=== PATIENT | male | born 1970 | race Caucasian/White ===

== ENCOUNTER 2021-08-06 13:25 | Emergency (ER) | payer OTHER ==
[2021-08-06] MEDS ORDERED: SODIUM CHLORIDE 0.9% 500 ML 500 ML IV STA (13:31)
[2021-08-06] MEDS ORDERED: HYDROmorphone 0.5 MG/0.5 ML SYRINGE IVP STA (13:31)
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
[2021-08-06 14:14] LABS: Glucose,Whole Blood 91 mg/dL (75-99)
[2021-08-06 14:15] LABS: ALT 16 U/L (4-49); AST 20 U/L (17-59); African American GFR (CKD) >90 (>60 ml/min/1.73 sqM); Alcohol <10 mg/dL; Alkaline Phosphatase 83 U/L (38-126); Anion Gap 8 mmol/L; Blood Urea Nitrogen 17 mg/dL (9-20); Calcium 9.7 mg/dL (8.4-10.2); Carbon Dioxide 23 mmol/L (22-30); Chloride 106 mmol/L (98-107); Glucose 112 mg/dL (74-99); Non-African American GFR(CKD) 90 (>60 ml/min/1.73 sqM); Potassium 3.9 mmol/L (3.5-5.1); Sodium 137 mmol/L (137-145); Total Bilirubin 0.8 mg/dL (0.2-1.3); Total Protein 6.7 g/dL (6.3-8.2)
--- NOTE | 2021-08-06 14:15 | XR ---
EXAMINATION TYPE: XR chest 1V portable DATE OF EXAM: 08/06/2021 COMPARISON: NONE HISTORY: Pain TECHNIQUE: Single frontal view of the chest is obtained. FINDINGS: There is no focal air space opacity, pleural effusion, or pneumothorax seen. The cardiac silhouette size is within normal limits. The osseous structures are intact. Postsurgical change ove rlying the cervical spine. Biapical pleural thickening. IMPRESSION: No acute process.
[2021-08-06 14:19] LABS: Partial Thromboplastin Time 23.2 sec (22.0-30.0); Prothrombin Time 10.9 sec (9.0-12.0)
--- NOTE | 2021-08-06 14:21 | XR ---
EXAMINATION TYPE: XR pelvis AP view DATE OF EXAM: 08/06/2021 COMPARISON: NONE HISTORY: Pain The osseous structures are intact and the joint spaces are preserved. No acute fracture is seen. Vi sualized bowel gas pattern is nonspecific. Hypertrophic change of the acetabulum bilaterally. Vascul ar phleboliths pelvis noted. IMPRESSION: 1. No acute fracture.
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
[2021-08-06] MEDS ORDERED: KETOROLAC 15 MG/ML 1 ML VIAL IVP STA (14:31)
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
[2021-08-06 14:55] LABS: Basophils % (A) 0 %; Eosinophils # (A) 0.1 k/uL (0-0.7); Eosinophils % (A) 2 %; HGB 14.3 gm/dL (13.0-17.5); Lymphocytes # (A) 1.2 k/uL (1.0-4.8); Lymphocytes % (A) 17 %; MCH 29.8 pg (25.0-35.0); MCHC 34.1 g/dL (31.0-37.0); MCV 87.3 fL (80.0-100.0); Mean Platelet Volume 7.7; Monocytes # (A) 0.4 k/uL (0-1.0); Monocytes % (A) 5 %; Neutrophils # (A) 5.2 k/uL (1.3-7.7); Neutrophils % (A) 75 %; Platelet Count 231 k/uL (150-450); RBC 4.81 m/uL (4.30-5.90); RDW 12.8 % (11.5-15.5)
== END 2021-08-06 16:25 | disposition home or self-care (01) ==
LOC: EC 13:25
DX: S50.01XA Contusion of right elbow, initial encounter (principal); M54.9 Dorsalgia, unspecified; E11.9 Type 2 diabetes mellitus without complications; Z79.4 Long term (current) use of insulin; Z79.84 Long term (current) use of oral hypoglycemic drugs; Z90.49 Acquired absence of other specified parts of digestive tract; V40.5XXA Car driver injured in collision with pedestrian or animal in traffic accident, initial encounter; Y92.410 Unspecified street and highway as the place of occurrence of the external cause
CPT/HCPCS: 99285; 96374; 96375; 36415; 93005; 86900; 86901; 80053; 84484; 85025; 85610; 85730; 86850; 80320; 72170; 73080; 71045; 72125; 70450; 71260; 74177; J1885; J1170; Q9967

== ENCOUNTER 2021-09-24 13:59 | Inpatient (IN) | payer OTHER ==
[2021-09-24] MEDS ORDERED: ACETAMINOPHEN TAB 500 MG TAB PO STA (14:45)
[2021-09-24] MEDS ORDERED: HYDROmorphone 0.5 MG/0.5 ML SYRINGE IVP STA (14:45)
[2021-09-24 15:16] LABS: Appearance,Urine Clear (Clear); Bilirubin,Urine Negative (Negative); Blood,Urine Trace (Negative); Color,Urine Light Yellow; Glucose,Urine (UA) 4+ (Negative); Leukocyte Esterase,Urine Negative (Negative); Mucus,Urine Rare /hpf; Nitrite,Urine Negative (Negative); Protein,Urine 1+ (Negative); RBC,Urine <1 /hpf (0-5); Specific Gravity,Urine 1.022 (1.001-1.035); Urobilinogen,Urine <2.0 mg/dL (<2.0); WBC,Urine 3 /hpf (0-5)
[2021-09-24] MEDS ORDERED: SODIUM CHLORIDE 0.9% 500 ML 500 ML IV ONE (15:19)
[2021-09-24] MEDS ORDERED: SODIUM CHLORIDE 0.9% 1,000 ML IV ONE ×2 (15:19→15:45)
[2021-09-24] MEDS ORDERED: SODIUM CHLORIDE 0.9% 1,000 ML IV STA (15:20)
[2021-09-24 15:23] LABS: Basophils % (A) 0 %; Eosinophils % (A) 0 %; HCT 46.3 % (39.0-53.0); HGB 14.9 gm/dL (13.0-17.5); Hypochromasia Slight; Lymphocytes # (A) 0.3 k/uL (1.0-4.8); Lymphocytes % (A) 3 %; MCH 31.2 pg (25.0-35.0); MCHC 32.1 g/dL (31.0-37.0); Monocytes # (A) 0.3 k/uL (0-1.0); Monocytes % (A) 4 %; Neutrophils # (A) 7.1 k/uL (1.3-7.7); Neutrophils % (A) 91 %; Platelet Count 138 k/uL (150-450); RBC 4.76 m/uL (4.30-5.90); RDW 13.6 % (11.5-15.5); WBC 7.9 k/uL (3.8-10.6)
[2021-09-24 15:25] LABS: Ketones,Urine 4+ (Negative)
--- NOTE | 2021-09-24 15:26 | ED ---
General Adult HPI - General Chief complaint: Back Pain/Injury Stated complaint: Back pain, revisit Time Seen by Provider: 09/24/21 14:05 Source: patient, EMS, RN notes reviewed, old records reviewed Mode of arrival: EMS Limitations: no limitations - History of Present Illness Initial comments: This a 51-year-old male who presents emergency Department complaining of bilateral back pain he states it radiates down to his flanks and into the anterior thighs just states it's an achiness. Patient states she was here 2 days ago and had a CAT scan did not show any acute problem. Patient states she was also diagnosed with COVID at that time. It is a diabetic and states his sugar was high and he came in last time. Patient denies any chest pain palpita tions difficulty breathing shortness of breath. Patient denies abdominal pain patient denies any vomiting but complains of significant nausea. Patient denies any headache patient denies any numbness weakness. - Related Data Home Medications Medication Instructions Recorded Confirmed Ergocalciferol (Vitamin D2) 1,250 mcg PO MO 08/06/21 09/24/21 [Drisdol (50,000 Iu)] Fexofenadine HCl [Mckayla Allergy] 180 mg PO DAILY 08/06/21 09/24/21 Insulin Glargine,Hum.rec.anlog 40 units SQ DAILY 08/06/21 09/24/21 [Mary Ann Salgado] Insulin Lispro [humaLOG Kwikpen] See Protocol SQ AC-TID PRN 08/06/21 09/24/21 Levothyroxine Sodium [Synthroid] 50 mcg PO DAILY 08/06/21 09/24/21 Memantine [Namenda] 5 mg PO HS 09/22/21 09/24/21 traMADol HCl [Ultram] 50 mg PO BID PRN 09/22/21 09/24/21 Cyanocobalamin [Vitamin B-12] 500 mcg PO MO 09/24/21 09/24/21 Ibuprofen [Motrin] 800 mg PO Q8H PRN 09/24/21 09/24/21 Previous Rx's Medication Instructions Recorded Ondansetron [Zofran ODT] 4 mg PO Q8HR PRN #20 tab 09/23/21 Allergies Allergy/AdvReac Type Severity Reaction Status Date / Time No Known Allergies Allergy Verified 09/24/21 16:49 Review of Systems ROS Statement: Those systems with pertinent positive or pertinent negative responses have been documented in the HPI. ROS Other: All systems not noted in ROS Statement are negative. Past Medical History Past Medical History: Diabetes Mellitus History of Any Multi-Drug Resistant Organisms: None Reported Past Surgical History: Appendectomy, Back Surgery, Orthopedic Surgery Additional Past Surgical History / Comment(s): shoulder Past Psychological History: No Psychological Hx Reported Smoking Status: Never smoker Past Alcohol Use History: Occasional Past Drug Use History: None Reported General Exam - General Exam Comments Initial Comments: GENERAL: Patient is well-developed and well-nourished. Patient is nontoxic and well- hydrated and is in mild distress. ENT: Neck is soft and supple. No significant lymphadenopathy is noted. Oropharynx is clear. Moist mucous membranes. Neck has full range of motion without eliciting any pain. EYES: The sclera were anicteric and conjunctiva were pink and moist. Extraocular movements were intact and pupils were equal round and reactive to light. Eyelids were unremarkable. PULMONARY: Unlabored respirations. Good breath sounds bilaterally. No audible rales rhonchi or wheezing was noted. CARDIOVASCULAR: There is a regular rate and rhythm without any murmurs gallops or rubs. ABDOMEN: Soft and nontender with normal bowel sounds. SKIN: Skin is clear with no lesions or rashes and otherwise unremarkable. NEUROLOGIC: Patient is alert and oriented x3. Cranial nerves II through XII are grossly intact. Motor and sensory are also intact. Normal speech, volume and content. Symmetrical smile. Patient's straight leg test is normal bilateral MUSCULOSKELETAL: Normal extremities with adequate strength and full range of motion. LYMPHATICS: No significant lymphadenopathy is noted PSYCHIATRIC: Normal psychiatric evaluation. Limitations: no limitations Course Vital Signs 09/24/21 09/24/21 09/24/21 14:03 16:04 17:00 Temperature 98.1 F Pulse Rate 122 H 118 H 122 H Respiratory 18 20 20 Rate Blood Pressure 161/75 155/68 131/78 O2 Sat by Pulse 97 98 97 Oximetry Medical Decision Making - Medical Decision Making EKG sinus tachycardia 119 bpm PA interval is 132 QRS is 92 QT interval 328 QTC is 461 per patient's EKG shows no ST segment elevation or depression. Patient had diabetic ketoacidosis so I started the patient on some insulin and they've the patient to half liters of fluid. I spoke with Dr. Grover he agreed to admit the patient admitted the patient wrote admitting orders. Insulin will be continued on the floor. - Lab Data Result diagrams: 09/24/21 15:03 09/24/21 15:03 Lab Results 09/24/21 09/24/21 09/24/21 Range/Units 15:03 15:03 15:03 WBC 7.9 (3.8-10.6) k/uL RBC 4.76 (4.30-5.90) m/uL Hgb 14.9 (13.0-17.5) gm/dL Hct 46.3 (39.0-53.0) % MCV 97.2 D (80.0-100.0) fL MCH 31.2 (25.0-35.0) pg MCHC 32.1 (31.0-37.0) g/dL RDW 13.6 (11.5-15.5) % Plt Count 138 L (150-450) k/uL MPV 8.0 Neutrophils % 91 % Lymphocytes % 3 % Monocytes % 4 % Eosinophils % 0 % Basophils % 0 % Neutrophils # 7.1 (1.3-7.7) k/uL Lymphocytes # 0.3 L (1.0-4.8) k/uL Monocytes # 0.3 (0-1.0) k/uL Eosinophils # 0.0 (0-0.7) k/uL Basophils # 0.0 (0-0.2) k/uL Hypochromasia Slight Sample Site ABG pH (7.35-7.45) ABG pCO2 (35-45) mmHg ABG pO2 (83-108) mmHg ABG HCO3 (21-25) mmol/L ABG Total CO2 (19-24) mmol/L ABG O2 Saturation (94-97) % ABG Base Excess mmol/L Cricket Test FiO2 % Sodium 132 L (137-145) mmol/L Potassium 6.9 H* (3.5-5.1) mmol/L Chloride 100 (98-107) mmol/L Carbon Dioxide <5 L* (22-30) mmol/L Anion Gap mmol/L BUN 26 H (9-20) mg/dL Creatinine 1.62 H (0.66-1.25) mg/dL Est GFR (CKD-EPI)AfAm 56 (>60 ml/min/1.73 sqM) Est GFR (CKD-EPI)NonAf 48 (>60 ml/min/1.73 sqM) Glucose 621 H* (74-99) mg/dL POC Glucose (mg/dL) (75-99) mg/dL POC Glu Brazer Resistance ID Calcium 9.4 (8.4-10.2) mg/dL Total Bilirubin 0.8 (0.2-1.3) mg/dL AST 23 (17-59) U/L ALT 17 (4-49) U/L Alkaline Phosphatase 118 (38-126) U/L Total Protein 7.2 (6.3-8.2) g/dL Albumin 4.5 (3.5-5.0) g/dL Urine Color Light Yellow Urine Appearance Clear (Clear) Urine pH 5.0 (5.0-8.0) Ur Specific Benedict 1.022 (1.001-1.035) Urine Protein 1+ H (Negative) Urine Glucose (UA) 4+ H (Negative) Urine Ketones 4+ H (Negative) Urine Blood Trace H (Negative) Urine Nitrite Negative (Negative) Urine Bilirubin Negative (Negative) Urine Urobilinogen <2.0 (<2.0) mg/dL Ur Leukocyte Esterase Negative (Negative) Urine RBC <1 (0-5) /hpf Urine WBC 3 (0-5) /hpf Urine Mucus Rare H (None) /hpf Acetone, Qual (Negative) 09/24/21 09/24/21 09/24/21 Range/Units 15:03 16:35 17:00 WBC (3.8-10.6) k/uL RBC (4.30-5.90) m/uL Hgb (13.0-17.5) gm/dL Hct (39.0-53.0) % MCV (80.0-100.0) fL MCH (25.0-35.0) pg MCHC (31.0-37.0) g/dL RDW (11.5-15.5) % Plt Count (150-450) k/uL MPV Neutrophils % % Lymphocytes % % Monocytes % % Eosinophils % % Basophils % % Neutrophils # (1.3-7.7) k/uL Lymphocytes # (1.0-4.8) k/uL Monocytes # (0-1.0) k/uL Eosinophils # (0-0.7) k/uL Basophils # (0-0.2) k/uL Hypochromasia Sample Site Right Brachial Right Brachial ABG pH 7.05 L* 7.06 L* (7.35-7.45) ABG pCO2 25 L 17 L* (35-45) mmHg ABG pO2 49 L* 79 L (83-108) mmHg ABG HCO3 7 L* 5 L* (21-25) mmol/L ABG Total CO2 8 L 5 L (19-24) mmol/L ABG O2 Saturation 77.1 L 93.1 L (94-97) % ABG Base Excess -23.6 -25.5 mmol/L Cricket Test Yes Yes FiO2 21 21 % Sodium (137-145) mmol/L Potassium (3.5-5.1) mmol/L Chloride (98-107) mmol/L Carbon Dioxide (22-30) mmol/L Anion Gap mmol/L BUN (9-20) mg/dL Creatinine (0.66-1.25) mg/dL Est GFR (CKD-EPI)AfAm (>60 ml/min/1.73 sqM) Est GFR (CKD-EPI)NonAf (>60 ml/min/1.73 sqM) Glucose (74-99) mg/dL POC Glucose (mg/dL) (75-99) mg/dL POC Glu Brazer Resistance ID Calcium (8.4-10.2) mg/dL Total Bilirubin (0.2-1.3) mg/dL AST (17-59) U/L ALT (4-49) U/L Alkaline Phosphatase (38-126) U/L Total Protein (6.3-8.2) g/dL Albumin (3.5-5.0) g/dL Urine Color Urine Appearance (Clear) Urine pH (5.0-8.0) Ur Specific Benedict (1.001-1.035) Urine Protein (Negative) Urine Glucose (UA) (Negative) Urine Ketones (Negative) Urine Blood (Negative) Urine Nitrite (Negative) Urine Bilirubin (Negative) Urine Urobilinogen (<2.0) mg/dL Ur Leukocyte Esterase (Negative) Urine RBC (0-5) /hpf Urine WBC (0-5) /hpf Urine Mucus (None) /hpf Acetone, Qual Positive (Negative) 01/06/22 Range/Units 17:06 WBC (3.8-10.6) k/uL RBC (4.30-5.90) m/uL Hgb (13.0-17.5) gm/dL Hct (39.0-53.0) % MCV (80.0-100.0) fL MCH (25.0-35.0) pg MCHC (31.0-37.0) g/dL RDW (11.5-15.5) % Plt Count (150-450) k/uL MPV Neutrophils % % Lymphocytes % % Monocytes % % Eosinophils % % Basophils % % Neutrophils # (1.3-7.7) k/uL Lymphocytes # (1.0-4.8) k/uL Monocytes # (0-1.0) k/uL Eosinophils # (0-0.7) k/uL Basophils # (0-0.2) k/uL Hypochromasia Sample Site ABG pH (7.35-7.45) ABG pCO2 (35-45) mmHg ABG pO2 (83-108) mmHg ABG HCO3 (21-25) mmol/L ABG Total CO2 (19-24) mmol/L ABG O2 Saturation (94-97) % ABG Base Excess mmol/L Cricket Test FiO2 % Sodium (137-145) mmol/L Potassium (3.5-5.1) mmol/L Chloride (98-107) mmol/L Carbon Dioxide (22-30) mmol/L Anion Gap mmol/L BUN (9-20) mg/dL Creatinine (0.66-1.25) mg/dL Est GFR (CKD-EPI)AfAm (>60 ml/min/1.73 sqM) Est GFR (CKD-EPI)NonAf (>60 ml/min/1.73 sqM) Glucose (74-99) mg/dL POC Glucose (mg/dL) 559 H (75-99) mg/dL POC Glu Brazer Resistance ID Johnna Blunt Calcium (8.4-10.2) mg/dL Total Bilirubin (0.2-1.3) mg/dL AST (17-59) U/L ALT (4-49) U/L Alkaline Phosphatase (38-126) U/L Total Protein (6.3-8.2) g/dL Albumin (3.5-5.0) g/dL Urine Color Urine Appearance (Clear) Urine pH (5.0-8.0) Ur Specific Benedict (1.001-1.035) Urine Protein (Negative) Urine Glucose (UA) (Negative) Urine Ketones (Negative) Urine Blood (Negative) Urine Nitrite (Negative) Urine Bilirubin (Negative) Urine Urobilinogen (<2.0) mg/dL Ur Leukocyte Esterase (Negative) Urine RBC (0-5) /hpf Urine WBC (0-5) /hpf Urine Mucus (None) /hpf Acetone, Qual (Negative) Critical Care Time Critical Care Time: Yes Total Critical Care Time: 35 Disposition Clinical Impression: DKA (diabetic ketoacidosis), COVID-19 Disposition: ADMITTED IP TO THIS HOSP Referrals: Arianna Solorzano MD [Primary Care Provider] - 1-2 days Time of Disposition: 17:23
[2021-09-24 15:33] LABS: ALT 17 U/L (4-49); AST 23 U/L (17-59); African American GFR (CKD) 56 (>60 ml/min/1.73 sqM); Albumin 4.5 g/dL (3.5-5.0); Alkaline Phosphatase 118 U/L (38-126); Blood Urea Nitrogen 26 mg/dL (9-20); Calcium 9.4 mg/dL (8.4-10.2); Chloride 100 mmol/L (98-107); MCV 97.2 fL (80.0-100.0); Non-African American GFR(CKD) 48 (>60 ml/min/1.73 sqM); Sodium 132 mmol/L (137-145); Total Bilirubin 0.8 mg/dL (0.2-1.3); Total Protein 7.2 g/dL (6.3-8.2)
[2021-09-24 15:43] LABS: Potassium 6.9 mmol/L (3.5-5.1)
[2021-09-24 15:44] LABS: Carbon Dioxide <5 mmol/L (22-30)
[2021-09-24] MEDS ORDERED: INSULIN REGULAR BOLUS (FROM DRIP BAG) IV ONE (16:11)
[2021-09-24 16:44] LABS: ABG Base Excess -23.6 mmol/L; ABG Oxygen Saturation 77.1 % (94-97); ABG PCO2 25 mmHg (35-45); ABG TCO2 8 mmol/L (19-24); Allen Test Performed? Yes
[2021-09-24] MEDS: INSULIN REGULAR 100 UNIT in SODIUM CHLORIDE 0.9% 100 ML IV SCH (16:45)
[2021-09-24] MEDS: HYDROmorphone 0.5 MG/0.5 ML SYRINGE IVP PRN (16:47)
[2021-09-24] MEDS: SODIUM CHLORIDE 0.9% 1,000 ML IV SCH ×4 (16:48→23:10)
[2021-09-24 16:54] LABS: ABG PH 7.05 (7.35-7.45); ABG PO2 49 mmHg (83-108)
[2021-09-24 16:55] LABS: ABG HCO3 7 mmol/L (21-25)
[2021-09-24 17:08] LABS: Glucose,Whole Blood 559 mg/dL (75-99)
[2021-09-24 17:11] LABS: ABG Base Excess -25.5 mmol/L; ABG Oxygen Saturation 93.1 % (94-97); ABG PO2 79 mmHg (83-108); ABG TCO2 5 mmol/L (19-24); Allen Test Performed? Yes
[2021-09-24 17:18] LABS: ABG HCO3 5 mmol/L (21-25); ABG PCO2 17 mmHg (35-45); ABG PH 7.06 (7.35-7.45)
[2021-09-24] MEDS ORDERED: INSULIN REGULAR 100 UNIT in SODIUM CHLORIDE 0.9% 100 ML IV SCH (17:30)
[2021-09-24] MEDS: ONDANSETRON 4 MG/2 ML VIAL IVP PRN (17:54)
[2021-09-24 18:30] LABS: Glucose,Whole Blood 421 mg/dL (75-99)
[2021-09-24] MEDS ORDERED: ALPRAZolam 0.25 MG TAB PO PRN (18:53)
[2021-09-24 19:27] LABS: Glucose,Whole Blood 401 mg/dL (75-99)
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
[2021-09-24 20:33] LABS: Glucose,Whole Blood 322 mg/dL (75-99)
[2021-09-24 21:22] LABS: Glucose,Whole Blood 305 mg/dL (75-99)
[2021-09-24 21:29] LABS: Phosphorus 3.1 mg/dL (2.5-4.5)
[2021-09-24 22:26] LABS: Glucose,Whole Blood 276 mg/dL (75-99)
[2021-09-24] MEDS: HEPARIN SODIUM,PORCINE/PF 5,000 UNIT/0.5 ML SYRINGE SQ SCH (23:10)
[2021-09-24] MEDS: D5-0.45% NACL WITH KCL 20MEQ/L 1,000 ML IV SCH (23:11)
[2021-09-24] MEDS: PANTOPRAZOLE 40 MG/10 ML VIAL IVP SCH (23:11)
[2021-09-24 23:30] LABS: Glucose,Whole Blood 267 mg/dL (75-99)
[2021-09-25 00:41] LABS: Glucose,Whole Blood 258 mg/dL (75-99)
[2021-09-25 01:37] LABS: Phosphorus 1.4 mg/dL (2.5-4.5); Potassium 4.3 mmol/L (3.5-5.1)
[2021-09-25 01:46] LABS: Glucose,Whole Blood 211 mg/dL (75-99)
[2021-09-25] MEDS: INSULIN REGULAR 100 UNIT in SODIUM CHLORIDE 0.9% 100 ML IV SCH (01:51)
[2021-09-25] MEDS: HYDROmorphone 0.5 MG/0.5 ML SYRINGE IVP PRN ×2 (01:51→05:13)
[2021-09-25] MEDS: ONDANSETRON 4 MG/2 ML VIAL IVP PRN ×2 (01:52→08:44)
[2021-09-25 02:47] LABS: Glucose,Whole Blood 217 mg/dL (75-99)
[2021-09-25 03:48] LABS: Glucose,Whole Blood 202 mg/dL (75-99)
[2021-09-25 04:54] LABS: Glucose,Whole Blood 144 mg/dL (75-99)
[2021-09-25 05:57] LABS: C Reactive Protein 7.7 mg/dL (<1.0); Calcium 8.3 mg/dL (8.4-10.2); Total Bilirubin 0.4 mg/dL (0.2-1.3); Total Protein 5.6 g/dL (6.3-8.2)
[2021-09-25 06:03] LABS: Glucose,Whole Blood 127 mg/dL (75-99)
[2021-09-25 06:30] LABS: HCT 36.3 % (39.0-53.0); HGB 12.5 gm/dL (13.0-17.5); MCH 31.1 pg (25.0-35.0); MCHC 34.3 g/dL (31.0-37.0); Mean Platelet Volume 7.4; Platelet Count 135 k/uL (150-450); RBC 4.02 m/uL (4.30-5.90); RDW 13.4 % (11.5-15.5); WBC 3.6 k/uL (3.8-10.6)
[2021-09-25 06:45] LABS: MCV 90.5 fL (80.0-100.0)
[2021-09-25] MEDS: MEMANTINE 5 MG TAB PO SCH ×2 (07:09→20:44)
[2021-09-25 07:11] LABS: Glucose,Whole Blood 114 mg/dL (75-99)
[2021-09-25] MEDS: SODIUM CHLORIDE 0.9% 1,000 ML IV SCH ×2 (07:40→07:41)
[2021-09-25] MEDS: LEVOTHYROXINE 50 MCG TAB PO SCH (07:50)
[2021-09-25] MEDS: HYDROcodone/APAP 5-325MG 1 EACH TAB PO PRN ×2 (07:50→20:45)
[2021-09-25] MEDS: PANTOPRAZOLE 40 MG/10 ML VIAL IVP SCH ×2 (07:51→20:43)
[2021-09-25] MEDS: HEPARIN SODIUM,PORCINE/PF 5,000 UNIT/0.5 ML SYRINGE SQ SCH ×2 (07:51→20:43)
[2021-09-25 07:59] LABS: Glucose,Whole Blood 120 mg/dL (75-99)
[2021-09-25 09:05] LABS: Potassium 4.2 mmol/L (3.5-5.1)
[2021-09-25 09:19] LABS: Glucose 621 mg/dL (74-99)
[2021-09-25 09:34] LABS: Band Neutrophils % 2 %; Basophils # (M) 0.04 k/uL (0-0.2); Lymphocytes # (M) 0.61 k/uL (1.0-4.8); Monocytes # (M) 0.25 k/uL (0-1.0); Neutrophils % (M) 73 %; Nucleated Red Blood Cells 0 /100 WBC (0-0); Total Cells Counted 100
[2021-09-25] MEDS: INSULIN DETEMIR (LEVEMIR) 100 UNIT/ML SYR SQ SCH (10:04)
--- NOTE | 2021-09-25 10:30 | XR ---
EXAMINATION TYPE: XR chest 1V portable DATE OF EXAM: 09/25/2021 COMPARISON: Chest x-ray 08/06/2021 HISTORY: Covid pneumonia TECHNIQUE: Single frontal view of the chest is obtained. FINDINGS: Bilateral patchy airspace disease is present. There is no evident pneumothorax or pleural effusion. Cardiac mediastinal silhouette is stable. Postop changes are noted to lower cervical spine. There are overlying artifacts. IMPRESSION: Correlate for pneumonia.
--- NOTE | 2021-09-25 10:53 | P.CNPUL ---
History of Present Illness Consult date: 09/25/21 Requesting physician: Sofía Grover Reason for consult: abnormal CXR/CT ([facility]) Chief complaint: Back pain radiating to his flanks and anterior thighs History of present illness: This is a 51-year-old male patient who follows with Cathy Calle as his primary care provider. He has a history of diabetes mellitus, hypothyroidism, chronic back pain. He had been seen in the emergency room on 09/22/2021 with complaints of back pain, flank pain radiating down to his thighs. CAT scan at that time did not reveal any abnormal findings the abdomen and pelvis. Lung bases of the Lungs However Revealed Minimal Reticular Interstitial Density of the Left Lateral Lung Base. He was incidentally found to be positive for CoVID 19 and received monoclonal antibodies. He was not vaccinated. He was discharged home. He represented here yesterday with similar complaints. Also having complaints of nausea. No vomiting. No diarrhea. He was found to be in diabetic ketoacidosis. Arterial blood gases reveal a pO2 of 79, pCO2 of 17 and a pH of 7.06 on room air. Bicarb of 8. Anion gap of 18. Acetone positive. Urinalysis with 4+ glucose. 4+ ketones. He was initiated on the DKA protocol and the plan was to be transferred to the intensive care unit. He is seen today in consultation in the emergency department. He is currently sitting up in bed. Awake and alert in no acute distress. He is maintaining O2 saturations in the 90s on room air. No pulmonary complaints whatsoever. His insulin drip has been weaned off. He is on D5.45 at 20 of KCl at 150 MLS per hour. White count 3.6. Hemoglobin 12.5. Platelets 135. Lymphocytes 0.61. D-dimer 0.52. Sodium 137. Potassium 4.2. Bicarb 18. Anion gap 6. Creatinine 1.17. Glucose 146. AST 20. ALT 12. LDH 466. C-reactive protein 7.7. Coronavirus by PCR detected. He did receive 6 L of fluid resuscitation. Chest x-ray continues to revealed bilateral patchy airspace disease. No evidence of pneumothorax. He's been ini tiated on heparin for DVT prophylaxis. Levemir at 20 units daily along with NovoLog sliding scale. Review of Systems REVIEW OF SYSTEMS: CONSTITUTIONAL: Denies weakness, fatigue. Denies any recent significant weight loss or weight gain. EYES: Denies change in vision. EARS, NOSE, MOUTH, THROAT: Denies headaches, denies sore throat. CARDIOVASCULAR: Denies chest pain, palpitations or syncopal episodes. RESPIRATORY: Denies shortness of breath, cough, congestion or hemoptysis. GASTROINTESTINAL: Denies change in appetite, denies abdominal pain GENITOURINARY: Denies hematuria, denies infections. MUSKULOSKELETAL: Positive for back pain, flank pain radiating to his thighs. INTEGUMENTARY: Denies rash, denies eczema. NEUROLOGICAL: Denies recent memory loss, no recent seizure activity. PSYCHIATRIC: Denies anxiety, denies depression. HEMATOLOGIC/LYMPHATIC: Denies anemia, denies enlarged lymph nodes. Past Medical History Past Medical History: Diabetes Mellitus History of Any Multi-Drug Resistant Organisms: None Reported Past Surgical History: Appendectomy, Back Surgery, Orthopedic Surgery Additional Past Surgical History / Comment(s): shoulder Past Psychological History: No Psychological Hx Reported Smoking Status: Never smoker Past Alcohol Use History: Occasional Past Drug Use History: None Reported Medications and Allergies Home Medications Medication Instructions Recorded Confirmed Type Ergocalciferol (Vitamin D2) 1,250 mcg PO MO 08/06/21 09/24/21 History [Drisdol (50,000 Iu)] Fexofenadine HCl [Mckayla Allergy] 180 mg PO DAILY 08/06/21 09/24/21 History Insulin Glargine,Hum.rec.anlog 40 units SQ DAILY 08/06/21 09/24/21 History [Mary Ann Salgado] Insulin Lispro [humaLOG Kwikpen] See Protocol SQ AC-TID PRN 08/06/21 09/24/21 History Levothyroxine Sodium [Synthroid] 50 mcg PO DAILY 08/06/21 09/24/21 History Memantine [Namenda] 5 mg PO HS 09/22/21 09/24/21 History traMADol HCl [Ultram] 50 mg PO BID PRN 09/22/21 09/24/21 History Ondansetron [Zofran ODT] 4 mg PO Q8HR PRN #20 tab 09/23/21 09/24/21 Rx Cyanocobalamin [Vitamin B-12] 500 mcg PO MO 09/24/21 09/24/21 History Ibuprofen [Motrin] 800 mg PO Q8H PRN 09/24/21 09/24/21 History Allergies Allergy/AdvReac Type Severity Reaction Status Date / Time No Known Allergies Allergy Verified 09/24/21 16:49 Physical Exam Vitals: Vital Signs Temp Pulse Resp BP Pulse Ox 09/25/21 07:43 98.3 F 98 13 140/76 97 09/25/21 06:00 89 11 L 127/72 92 L 09/25/21 05:00 95 13 140/81 95 09/25/21 04:00 104 H 10 L 133/85 95 09/25/21 03:00 94 12 136/73 94 L 09/25/21 02:00 111 H 6 L 137/74 93 L 09/25/21 01:00 107 H 18 137/74 96 09/24/21 22:00 109 H 18 135/77 95 09/24/21 17:00 122 H 20 131/78 97 09/24/21 16:04 118 H 20 155/68 98 09/24/21 14:03 98.1 F 122 H 18 161/75 97 Intake and Output 09/24/21 09/25/21 09/25/21 22:59 06:59 14:59 Intake Total 58.412 90.363 5.146 Output Total 1200 Balance 58.412 -1109.637 5.146 Intake: Intake, IV Titration 58.412 90.363 5.146 Amount Insulin Regular 100 unit 58.412 90.363 5.146 In Sodium Chloride 0.9% 100 ml @ 0.1 UNITS/KG/HR 10.308 mls/hr IV .[id number] [facility] Rx#:[id number] Output: Urine 1200 GENERAL EXAM: Alert, very pleasant 51-year-old gentleman gentleman, on room air, comfortable in no apparent distress. HEAD: Normocephalic. EYES: Normal reaction of pupils, equal size. NOSE: Clear with pink turbinates. THROAT: No erythema or exudates. NECK: No masses, no JVD. CHEST: No chest wall deformity. LUNGS: Equal air entry with crackles in the bilateral bases. CVS: S1 and S2 normal with no audible murmur, regular rhythm. ABDOMEN: No hepatosplenomegaly, normal bowel sounds, no guarding or rigidity. SPINE: No scoliosis or deformity SKIN: No rashes CENTRAL NERVOUS SYSTEM: No focal deficits, tone is normal in all 4 extremities. EXTREMITIES: There is no peripheral edema. No clubbing, no cyanosis. Periph eral pulses are intact. Results - Laboratory Findings CBC and BMP: 09/25/21 05:16 09/25/21 08:31 ABG ABG pH 7.06 (7.35-7.45) L* 09/24/21 17:00 ABG pCO2 17 mmHg (35-45) L* 09/24/21 17:00 ABG pO2 79 mmHg (83-108) L 09/24/21 17:00 ABG O2 Saturation 93.1 % (94-97) L 09/24/21 17:00 PT/INR, D-dimer D-Dimer 0.52 mg/L FEU (<0.60) 09/25/21 05:16 Abnormal lab findings: Abnormal Labs 09/24/21 09/24/21 09/24/21 15:03 15:03 15:03 WBC RBC Hgb Hct Plt Count 138 L Lymphocytes # 0.3 L Lymphocytes # (Manual) ABG pH ABG pCO2 ABG pO2 ABG HCO3 ABG Total CO2 ABG O2 Saturation Sodium 132 L Potassium 6.9 H* Chloride Carbon Dioxide <5 L* BUN 26 H Creatinine 1.62 H Glucose 621 H* POC Glucose (mg/dL) Calcium Phosphorus C-Reactive Protein Total Protein Albumin Urine Protein 1+ H Urine Glucose (UA) 4+ H Urine Ketones 4+ H Urine Blood Trace H Urine Mucus Rare H Coronavirus (PCR) 09/24/21 09/24/21 09/24/21 16:35 17:00 17:06 WBC RBC Hgb Hct Plt Count Lymphocytes # Lymphocytes # (Manual) ABG pH 7.05 L* 7.06 L* ABG pCO2 25 L 17 L* ABG pO2 49 L* 79 L ABG HCO3 7 L* 5 L* ABG Total CO2 8 L 5 L ABG O2 Saturation 77.1 L 93.1 L Sodium Potassium Chloride Carbon Dioxide BUN Creatinine Glucose POC Glucose (mg/dL) 559 H Calcium Phosphorus C-Reactive Protein Total Protein Albumin Urine Protein Urine Glucose (UA) Urine Ketones Urine Blood Urine Mucus Coronavirus (PCR) 09/24/21 09/24/21 09/24/21 18:29 19:25 20:32 WBC RBC Hgb Hct Plt Count Lymphocytes # Lymphocytes # (Manual) ABG pH ABG pCO2 ABG pO2 ABG HCO3 ABG Total CO2 ABG O2 Saturation Sodium Potassium Chloride Carbon Dioxide BUN Creatinine Glucose POC Glucose (mg/dL) 421 H 401 H 322 H Calcium Phosphorus C-Reactive Protein Total Protein Albumin Urine Protein Urine Glucose (UA) Urine Ketones Urine Blood Urine Mucus Coronavirus (PCR) 09/24/21 09/24/21 09/24/21 20:41 21:20 22:24 WBC RBC Hgb Hct Plt Count Lymphocytes # Lymphocytes # (Manual) ABG pH ABG pCO2 ABG pO2 ABG HCO3 ABG Total CO2 ABG O2 Saturation Sodium 136 L Potassium Chloride 109 H Carbon Dioxide 8 L* BUN 27 H Creatinine 1.43 H Glucose 351 H POC Glucose (mg/dL) 305 H 276 H Calcium Phosphorus C-Reactive Protein Total Protein Albumin Urine Protein Urine Glucose (UA) Urine Ketones Urine Blood Urine Mucus Coronavirus (PCR) 09/24/21 09/25/21 09/25/21 23:28 00:16 00:29 WBC RBC Hgb Hct Plt Count Lymphocytes # Lymphocytes # (Manual) ABG pH ABG pCO2 ABG pO2 ABG HCO3 ABG Total CO2 ABG O2 Saturation Sodium 136 L Potassium Chloride 111 H Carbon Dioxide 16 L BUN 27 H Creatinine 1.29 H Glucose 254 H POC Glucose (mg/dL) 267 H 258 H Calcium Phosphorus 1.4 L C-Reactive Protein Total Protein Albumin Urine Protein Urine Glucose (UA) Urine Ketones Urine Blood Urine Mucus Coronavirus (PCR) 09/25/21 09/25/21 09/25/21 01:45 01:54 02:46 WBC RBC Hgb Hct Plt Count Lymphocytes # Lymphocytes # (Manual) ABG pH ABG pCO2 ABG pO2 ABG HCO3 ABG Total CO2 ABG O2 Saturation Sodium Potassium Chloride Carbon Dioxide BUN Creatinine Glucose POC Glucose (mg/dL) 211 H 217 H Calcium Phosphorus C-Reactive Protein Total Protein Albumin Urine Protein Urine Glucose (UA) Urine Ketones Urine Blood Urine Mucus Coronavirus (PCR) Detected A 09/25/21 09/25/21 09/25/21 03:46 04:52 05:16 WBC 3.6 L RBC 4.02 L Hgb 12.5 L Hct 36.3 L Plt Count 135 L Lymphocytes # Lymphocytes # (Manual) 0.61 L ABG pH ABG pCO2 ABG pO2 ABG HCO3 ABG Total CO2 ABG O2 Saturation Sodium Potassium Chloride Carbon Dioxide BUN Creatinine Glucose POC Glucose (mg/dL) 202 H 144 H Calcium Phosphorus C-Reactive Protein Total Protein Albumin Urine Protein Urine Glucose (UA) Urine Ketones Urine Blood Urine Mucus Coronavirus (PCR) 09/25/21 09/25/21 09/25/21 05:16 06:00 07:09 WBC RBC Hgb Hct Plt Count Lymphocytes # Lymphocytes # (Manual) ABG pH ABG pCO2 ABG pO2 ABG HCO3 ABG Total CO2 ABG O2 Saturation Sodium Potassium Chloride 112 H Carbon Dioxide 17 L BUN 25 H Creatinine Glucose 143 H POC Glucose (mg/dL) 127 H 114 H Calcium 8.3 L Phosphorus C-Reactive Protein 7.7 H Total Protein 5.6 L Albumin 3.0 L Urine Protein Urine Glucose (UA) Urine Ketones Urine Blood Urine Mucus Coronavirus (PCR) 09/25/21 09/25/21 07:57 08:31 WBC RBC Hgb Hct Plt Count Lymphocytes # Lymphocytes # (Manual) ABG pH ABG pCO2 ABG pO2 ABG HCO3 ABG Total CO2 ABG O2 Saturation Sodium Potassium Chloride 113 H Carbon Dioxide 18 L BUN 22 H Creatinine Glucose 146 H POC Glucose (mg/dL) 120 H Calcium Phosphorus 2.0 L C-Reactive Protein Total Protein Albumin Urine Protein Urine Glucose (UA) Urine Ketones Urine Blood Urine Mucus Coronavirus (PCR) - Diagnostic Findings Chest x-ray: image reviewed Assessment and Plan Assessment: 1 Acute diabetic ketoacidosis, improved enough insulin drip 2 Acute anion gap metabolic acidosis, recovered 3 Diabetes mellitus 4 COVID-19 infection without pulmonary symptoms. Received monoclonal antibodies on 09/22/2021. Not vaccinated. 5 Hypothyroidism Plan: The patient was seen and evaluated today His gap has closed and he is downgraded from ICU to regular medical floor Continue with his Levemir and NovoLog sliding scale Add vitamin supplements, heparin Follow-up chest x-ray and inflammatory markers in the a.m. We will continue to follow and make further recommendations based on his clinical status I, the cosigning physician, performed a history & physical examination of the patient. Lungs sounds are clear. Maintaining good O2 saturations in the 90s on room air. I discussed the assessment and plan of care with my nurse practitioner, Afia Wooten. I attest to the above consultation as dictated by her. Time with Patient: Greater than 30
[2021-09-25 11:41] LABS: Erythrocyte Sedimentation Rate 17 mm/hr (0-15)
[2021-09-25 11:52] LABS: Glucose,Whole Blood 275 mg/dL (75-99)
[2021-09-25] MEDS: INSULIN ASPART (NovoLOG) 100 UNIT/ML VIAL SQ SCH ×3 (12:00→20:44)
[2021-09-25 13:49] VITALS: BMI 29.7
[2021-09-25] MEDS: D5-0.45% NACL WITH KCL 20MEQ/L 1,000 ML IV SCH (15:17)
[2021-09-25 17:20] LABS: Glucose,Whole Blood 219 mg/dL (75-99)
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
[2021-09-25 20:18] LABS: Glucose,Whole Blood 188 mg/dL (75-99)
[2021-09-26] MEDS: LEVOTHYROXINE 50 MCG TAB PO SCH (05:43)
[2021-09-26 06:49] LABS: Glucose,Whole Blood 231 mg/dL (75-99)
--- NOTE | 2021-09-26 07:21 | XR ---
EXAMINATION TYPE: XR chest 1V portable DATE OF EXAM: 09/26/2021 CLINICAL HISTORY: Difficulty breathing and covid progress study. TECHNIQUE: Single AP portable upright view of the chest is obtained. COMPARISON: Chest x-ray from one day earlier and older studies. FINDINGS: Persistent bilateral multifocal increased opacities greater in the left lung and in the pe riphery. Cardiac silhouette size is stable and upper limits of normal. Anterior fusion plate cervical thoracic junction redemonstrated. IMPRESSION: Bilateral multifocal increased opacities consistent with coivd-19 infection are redemonst rated. No significant change from one day earlier.
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
[2021-09-26] MEDS: PANTOPRAZOLE 40 MG/10 ML VIAL IVP SCH ×2 (08:24→21:38)
[2021-09-26] MEDS: HEPARIN SODIUM,PORCINE/PF 5,000 UNIT/0.5 ML SYRINGE SQ SCH ×2 (08:24→21:38)
[2021-09-26] MEDS: INSULIN ASPART (NovoLOG) 100 UNIT/ML VIAL SQ SCH ×4 (08:25→21:37)
[2021-09-26] MEDS: ZINC SULFATE 220 MG CAP PO SCH (08:25)
[2021-09-26] MEDS: ASCORBIC ACID 500 MG TAB PO SCH (08:25)
[2021-09-26] MEDS: HYDROcodone/APAP 5-325MG 1 EACH TAB PO PRN ×2 (08:25→17:38)
[2021-09-26] MEDS: INSULIN DETEMIR (LEVEMIR) 100 UNIT/ML SYR SQ SCH (08:27)
[2021-09-26 10:08] LABS: Basophils # (A) 0 X 10*3/uL (0.00-0.10); Basophils % (A) 0 %; Eosinophils # (A) 0 X 10*3/uL (0.04-0.35); Eosinophils % (A) 0 %; HCT 36.7 % (39.6-50.0); HGB 12.5 g/dL (13.0-17.0); Lymphocytes # (A) 0.69 X 10*3/uL (0.90-5.00); Lymphocytes % (A) 29.6 %; MCH 29.8 pg (27.0-32.0); MCHC 34.1 g/dL (32.0-37.0); MCV 87.6 fL (80.0-97.0); Mean Platelet Volume 9.8 fL (9.5-12.2); Monocytes # (A) 0.23 X 10*3/uL (0.20-1.00); Monocytes % (A) 9.9 %; Neutrophils % (A) 60.1 %; Platelet Count 124 X 10*3/uL (140-440); RBC 4.19 X 10*6/uL (4.40-5.60); RDW 13.2 % (11.5-14.5); WBC 2.33 X 10*3/uL (4.50-10.00)
[2021-09-26 10:44] LABS: African American GFR (CKD) 90.6 (60.0-200.0); Anion Gap 14.1 mmol/L (10.00-18.00); BUN/Creat Ratio 13.67 Ratio (12.00-20.00); Blood Urea Nitrogen 14.9 mg/dL (9.0-27.0); C Reactive Protein 3.7 mg/dL (0.00-0.80); Calcium 8.4 mg/dL (8.7-10.3); Carbon Dioxide 18.9 mmol/L (20.0-27.5); Non-African American GFR(CKD) 78.2 (60.0-200.0)
[2021-09-26 12:01] LABS: Glucose,Whole Blood 280 mg/dL (75-99)
--- NOTE | 2021-09-26 16:10 | P.PN ---
Subjective Progress Note Date: 09/26/21 This is a 51-year-old male patient who follows with Cathy Calle as his primary care provider. He has a history of diabetes mellitus, hypothyroidism, chronic back pain. He had been seen in the emergency room on 09/22/2021 with complaints of back pain, flank pain radiating down to his thighs. CAT scan at that time did not reveal any abnormal findings the abdomen and pelvis. Lung bases of the Lungs However Revealed Minimal Reticular Interstitial Density of the Left Lateral Lung Base. He was incidentally found to be positive for CoVID 19 and received monoclonal antibodies. He was not vaccinated. He was discharged home. He represented here yesterday with similar complaints. Also having complaints of nausea. No vomiting. No diarrhea. He was found to be in diabetic ketoacidosis. Arterial blood gases reveal a pO2 of 79, pCO2 of 17 and a pH of 7.06 on room air. Bicarb of 8. Anion gap of 18. Acetone positive. Urinalysis with 4+ glucose. 4+ ketones. He was initiated on the DKA protocol and the plan was to be transferred to the intensive care unit. He is seen today in consultation in the emergency department. He is currently sitting up in bed. Awake and alert in no acute distress. He is maintaining O2 saturations in the 90s on room air. No pulmonary complaints whatsoever. His insulin drip has been weaned off. He is on D5.45 at 20 of KCl at 150 MLS per hour. White count 3.6. Hemoglobin 12.5. Platelets 135. Lymphocytes 0.61. D-dimer 0.52. Sodium 137. Potassium 4.2. Bicarb 18. Anion gap 6. Creatinine 1.17. Glucose 146. AST 20. ALT 12. LDH 466. C-reactive protein 7.7. Coronavirus by PCR detected. He did receive 6 L of fluid resuscitation. Chest x-ray continues to revealed bilateral patchy airspace disease. No evidence of pneumothorax. He's been ini tiated on heparin for DVT prophylaxis. Levemir at 20 units daily along with NovoLog sliding scale. The patient is seen today 09/26/2021 in follow-up on the regular medical floor. He is currently sitting up in a chair at the bedside. Awake and alert in no acute distress. Feeling better today compared to yesterday. Continues to maintain good O2 saturations in the 90s on room air. He's afebrile. His x-ray continues to show bilateral multifocal opacities consistent with COVID-19 pneumonia. White count 2.3. Hemoglobin 12.5. Platelets 124. D-dimer 0.97. Sodium 140. Potassium 4.0. Creatinine 1.1. Hemoglobin A1c 9.8. Glucose 230. He is continued on heparin for DVT prophylaxis. Remains on vitamin supplements. Remains on room air and does not qualify for Decadron. Objective - Vital Signs Vital signs: Vital Signs Temp 98.7 F 09/26/21 13:31 Pulse 93 09/26/21 13:31 Resp 17 09/26/21 13:31 BP 156/83 09/26/21 13:31 Pulse Ox 97 09/26/21 13:31 Intake & Output 09/25/21 09/26/21 09/26/21 18:59 06:59 18:59 Intake Total 5.146 350 Balance 5.146 350 Weight 102.058 kg 113.5 kg Intake: Intake, IV Titration 5.146 Amount Insulin Regular 100 unit 5.146 In Sodium Chloride 0.9% 100 ml @ 0.1 UNITS/KG/HR 10.308 mls/hr IV .Q9H48M [facility] Rx#:[id number] Oral 350 Other: Voiding Method Toilet Toilet Urinal Urinal # Voids 2 - Exam GENERAL EXAM: Alert, very pleasant 51-year-old gentleman, on room air, comfortable in no apparent distress. HEAD: Normocephalic. EYES: Normal reaction of pupils, equal size. NOSE: Clear with pink turbinates. THROAT: No erythema or exudates. NECK: No masses, no JVD. CHEST: No chest wall deformity. LUNGS: Equal air entry with crackles in the bilateral bases. CVS: S1 and S2 normal with no audible murmur, regular rhythm. ABDOMEN: No hepatosplenomegaly, normal bowel sounds, no guarding or rigidity. SPINE: No scoliosis or deformity SKIN: No rashes CENTRAL NERVOUS SYSTEM: No focal deficits, tone is normal in all 4 extremities. EXTREMITIES: There is no peripheral edema. No clubbing, no cyanosis. Peripheral pulses are intact. - Labs CBC & Chem 7: 09/26/21 05:59 09/26/21 05:59 Labs: Abnormal Lab Results - Last 24 Hours (Table) 09/25/21 09/25/21 09/25/21 Range/Units 08:31 17:18 20:17 WBC (4.50-10.00) X 10*3/uL RBC (4.40-5.60) X 10*6/uL Hgb (13.0-17.0) g/dL Hct (39.6-50.0) % Plt Count (140-440) X 10*3/uL Neutrophils # (1.80-7.70) X 10*3/uL Lymphocytes # (0.90-5.00) X 10*3/uL Eosinophils # (0.04-0.35) X 10*3/uL D-Dimer (<0.60) mg/L FEU Carbon Dioxide (20.0-27.5) mmol/L Glucose (70-110) mg/dL POC Glucose (mg/dL) 219 H 188 H (75-99) mg/dL Hemoglobin A1c (4.0-6.0) % Calcium (8.7-10.3) mg/dL C-Reactive Protein (0.00-0.80) mg/dL Procalcitonin 1.12 H (0.02-0.09) ng/mL 09/26/21 09/26/21 09/26/21 Range/Units 05:59 05:59 05:59 WBC (4.50-10.00) X 10*3/uL RBC (4.40-5.60) X 10*6/uL Hgb (13.0-17.0) g/dL Hct (39.6-50.0) % Plt Count (140-440) X 10*3/uL Neutrophils # (1.80-7.70) X 10*3/uL Lymphocytes # (0.90-5.00) X 10*3/uL Eosinophils # (0.04-0.35) X 10*3/uL D-Dimer 0.97 H (<0.60) mg/L FEU Carbon Dioxide 18.9 L (20.0-27.5) mmol/L Glucose 230 H (70-110) mg/dL POC Glucose (mg/dL) (75-99) mg/dL Hemoglobin A1c 9.8 H (4.0-6.0) % Calcium 8.4 L (8.7-10.3) mg/dL C-Reactive Protein 3.70 H (0.00-0.80) mg/dL Procalcitonin (0.02-0.09) ng/mL 09/26/21 09/26/21 09/26/21 Range/Units 05:59 06:47 11:59 WBC 2.33 L (4.50-10.00) X 10*3/uL RBC 4.19 L (4.40-5.60) X 10*6/uL Hgb 12.5 L (13.0-17.0) g/dL Hct 36.7 L (39.6-50.0) % Plt Count 124 L (140-440) X 10*3/uL Neutrophils # 1.40 L (1.80-7.70) X 10*3/uL Lymphocytes # 0.69 L (0.90-5.00) X 10*3/uL Eosinophils # 0 L (0.04-0.35) X 10*3/uL D-Dimer (<0.60) mg/L FEU Carbon Dioxide (20.0-27.5) mmol/L Glucose (70-110) mg/dL POC Glucose (mg/dL) 231 H 280 H (75-99) mg/dL Hemoglobin A1c (4.0-6.0) % Calcium (8.7-10.3) mg/dL C-Reactive Protein (0.00-0.80) mg/dL Procalcitonin (0.02-0.09) ng/mL Assessment and Plan Assessment: 1 Acute diabetic ketoacidosis, recovered 2 Acute anion gap metabolic acidosis, recovered 3 Diabetes mellitus, hemoglobin A1c 9.8 4 COVID-19 infection without pulmonary symptoms. Received monoclonal antibodies on 09/22/2021. Not vaccinated. 5 Hypothyroidism Plan: The patient was seen and evaluated today Continue with his Levemir and NovoLog sliding scale Continue vitamin supplements, heparin We will continue to follow I, the cosigning physician, performed a history & physical examination of the patient. Lungs sounds with faint crackles in the posterior bases. Maintaining good O2 saturations in the 90s on room air. I discussed the assessment and plan of care with my nurse practitioner, Afia Wooten. I attest to the above note as dictated by her.
[2021-09-26 16:20] LABS: Glucose,Whole Blood 210 mg/dL (75-99)
--- NOTE | 2021-09-26 16:25 | P.PN ---
Subjective This is a pleasant 51 years old male with past medical history of diabetes mellitus on insulin 40 units of Lantus at home, presents with signs symptoms of DKA which is improved now, he is a started on Levemir 20 units and his glucose more than 250, therefore going to increase the dose to 25 units. Also patient is complaining of from nausea and Zofran dose was increased. No abdominal pain or chest pain. No significant dyspnea, no diarrhea. He is on room air. Inflammatory markers are trending down, he has mild leukopenia with WBC 2.6. Hemoglobin 12.5 and platelet 124. His hemoglobin A1c is 9.8, Chest x-ray today showing bilateral pneumonia, consistent with covert, no change from prior. He is currently on multiple vitamins, Protonix IV and insulin therapy Objective - Vital Signs Vital signs: Vital Signs Temp 98 F 09/26/21 08:26 Pulse 96 09/26/21 08:26 Resp 18 09/26/21 08:26 BP 162/86 09/26/21 08:26 Pulse Ox 97 09/26/21 08:26 Intake & Output 09/25/21 09/26/21 09/26/21 18:59 06:59 18:59 Intake Total 5.146 Balance 5.146 Weight 102.058 kg 113.5 kg Intake: Intake, IV Titration 5.146 Amount Insulin Regular 100 unit 5.146 In Sodium Chloride 0.9% 100 ml @ 0.1 UNITS/KG/HR 10.308 mls/hr IV .[id number] [facility] Rx#:[id number] Other: Voiding Method Toilet Toilet Urinal Urinal - Exam GENERAL: The patient is alert and oriented x3, not in any acute distress. Well developed, well nourished. HEENT: Pupils are round and equally reacting to light. EOMI. No scleral icterus. No conjunctival pallor. Normocephalic, atraumatic. No pharyngeal erythema. No thyromegaly. CARDIOVASCULAR: S1 and S2 present. No murmurs, rubs, or gallops. PULMONARY: Chest is clear to auscultation, no wheezing or crackles. ABDOMEN: Soft, nontender, nondistended, normoactive bowel sounds. No palpable organomegaly. MUSCULOSKELETAL: No joint swelling or deformity. EXTREMITIES: No cyanosis, clubbing, or pedal edema. NEUROLOGICAL: Gross neurological examination did not reveal any focal deficits. SKIN: No rashes. no petechiae. - Labs CBC & Chem 7: 09/26/21 05:59 09/26/21 05:59 Labs: Abnormal Lab Results - Last 24 Hours (Table) 09/25/21 09/25/21 09/25/21 Range/Units 08:31 17:18 20:17 WBC (4.50-10.00) X 10*3/uL RBC (4.40-5.60) X 10*6/uL Hgb (13.0-17.0) g/dL Hct (39.6-50.0) % Plt Count (140-440) X 10*3/uL Neutrophils # (1.80-7.70) X 10*3/uL Lymphocytes # (0.90-5.00) X 10*3/uL Eosinophils # (0.04-0.35) X 10*3/uL D-Dimer (<0.60) mg/L FEU Carbon Dioxide (20.0-27.5) mmol/L Glucose (70-110) mg/dL POC Glucose (mg/dL) 219 H 188 H (75-99) mg/dL Calcium (8.7-10.3) mg/dL C-Reactive Protein (0.00-0.80) mg/dL Procalcitonin 1.12 H (0.02-0.09) ng/mL 09/26/21 09/26/21 09/26/21 Range/Units 05:59 05:59 05:59 WBC 2.33 L (4.50-10.00) X 10*3/uL RBC 4.19 L (4.40-5.60) X 10*6/uL Hgb 12.5 L (13.0-17.0) g/dL Hct 36.7 L (39.6-50.0) % Plt Count 124 L (140-440) X 10*3/uL Neutrophils # 1.40 L (1.80-7.70) X 10*3/uL Lymphocytes # 0.69 L (0.90-5.00) X 10*3/uL Eosinophils # 0 L (0.04-0.35) X 10*3/uL D-Dimer 0.97 H (<0.60) mg/L FEU Carbon Dioxide 18.9 L (20.0-27.5) mmol/L Glucose 230 H (70-110) mg/dL POC Glucose (mg/dL) (75-99) mg/dL Calcium 8.4 L (8.7-10.3) mg/dL C-Reactive Protein 3.70 H (0.00-0.80) mg/dL Procalcitonin (0.02-0.09) ng/mL 09/26/21 09/26/21 Range/Units 06:47 11:59 WBC (4.50-10.00) X 10*3/uL RBC (4.40-5.60) X 10*6/uL Hgb (13.0-17.0) g/dL Hct (39.6-50.0) % Plt Count (140-440) X 10*3/uL Neutrophils # (1.80-7.70) X 10*3/uL Lymphocytes # (0.90-5.00) X 10*3/uL Eosinophils # (0.04-0.35) X 10*3/uL D-Dimer (<0.60) mg/L FEU Carbon Dioxide (20.0-27.5) mmol/L Glucose (70-110) mg/dL POC Glucose (mg/dL) 231 H 280 H (75-99) mg/dL Calcium (8.7-10.3) mg/dL C-Reactive Protein (0.00-0.80) mg/dL Procalcitonin (0.02-0.09) ng/mL Assessment and Plan Assessment: Bilateral Covid pneumonia Acute hypoxic respiratory failure Increased inflammatory markers Diabetes mellitus with hyperglycemia, present on admission DKA, improved Plan: This is a pleasant 51 years old male who presents with uncontrolled diabetes and DKA which is resolved and covid pneumonia no dexamethasone in view of lack of significant hypoxia and risk of DKA Continue with vitamin C, vitamin D and zinc Pulmonary consult , infectious disease consult Labs and medication were reviewed.. Continue same treatment. Continue with symptomatic treatment. Resume home medication. Monitor lytes and vitals. DVT and GI prophylaxis. Further recommendationsas per clinical course of the patient DVT prophylaxis: Subcutaneous heparin GI Prophylaxis: Ppi
[2021-09-26] MEDS ORDERED: INSULIN DETEMIR (LEVEMIR) 100 UNIT/ML SYR SQ ONE (16:45)
[2021-09-26] MEDS: ONDANSETRON 4 MG/2 ML VIAL IVP PRN (17:38)
--- NOTE | 2021-09-26 18:44 | PN ---
PROGRESS NOTE DATE OF SERVICE: 09/26/2021 REASON FOR FOLLOWUP: COVID-19 pneumonia. INTERVAL HISTORY: The patient is afebrile. The patient is breathing comfortably. Has been complaining of some cough, which is mostly mild to moderate. Not bringing up any sputum or any headache. Some nausea but no vomiting. No abdominal pain. Did have some diarrhea. PHYSICAL EXAMINATION: Blood pressure 156/83 with a pulse of 93, temperature 98.7. He is 97% on room air. General description is a middle-aged male lying in bed in no distress. Respiratory system: Unlabored breathing, decreased intensity of breath sounds. No wheeze. Heart S1, S2. Regular rate and rhythm. Abdomen soft, no tenderness. LABS: Hemoglobin is 12.4, white count 2.3, creatinine 1.1. CRP is 3.70. DIAGNOSTIC IMPRESSION AND PLAN: Patient with acute COVID-19 infection, more likely mild illness. Patient not hypoxic and will not qualify for Remdesivir. The patient is currently on heparin, zinc and ascorbic acid. Steroid has been because of petechiae. Blood sugar has been improving. Continue supportive care. MMODL / IJN: [id number] /
[2021-09-26 20:31] LABS: Glucose,Whole Blood 210 mg/dL (75-99)
[2021-09-26] MEDS: MEMANTINE 5 MG TAB PO SCH (21:38)
[2021-09-27] MEDS: LEVOTHYROXINE 50 MCG TAB PO SCH (06:23)
[2021-09-27 06:50] LABS: Glucose,Whole Blood 155 mg/dL (75-99)
[2021-09-27] MEDS: HYDROcodone/APAP 5-325MG 1 EACH TAB PO PRN ×2 (07:49→21:42)
[2021-09-27] MEDS: ASCORBIC ACID 500 MG TAB PO SCH (07:50)
[2021-09-27] MEDS: INSULIN ASPART (NovoLOG) 100 UNIT/ML VIAL SQ SCH ×4 (07:50→21:42)
[2021-09-27] MEDS: PANTOPRAZOLE 40 MG/10 ML VIAL IVP SCH ×2 (07:50→21:42)
[2021-09-27] MEDS: ZINC SULFATE 220 MG CAP PO SCH (07:50)
[2021-09-27] MEDS: HEPARIN SODIUM,PORCINE/PF 5,000 UNIT/0.5 ML SYRINGE SQ SCH ×2 (07:51→21:42)
[2021-09-27] MEDS ORDERED: INSULIN DETEMIR (LEVEMIR) 100 UNIT/ML SYR SQ SCH (09:00)
[2021-09-27 11:37] LABS: Glucose,Whole Blood 179 mg/dL (75-99)
--- NOTE | 2021-09-27 15:24 | P.PN ---
Subjective Progress Note Date: 09/27/21 Principal diagnosis: Diabetic ketoacidosis, cough, shortness of breath On 09/27/2021 patient seen in follow-up on medical surgical floor, he is awake and alert, oriented 3, breathing comfortably, still has a mild cough, he is currently on room air, pulse ox is 96%, vital signs have been stable, his been afebrile. His lung sounds reveal some mild bibasilar crackles, patient has been ambulating in the room, tolerating activity well, denies any chest pain, denies any worsening dyspnea, his only complaint is mild headaches. His last chest x- ray from yesterday showed bilateral multifocal opacities consistent with COVID- 19 infection without significant change from one day prior. He currently remains on multivitamins, he is on subcu heparin 5000 units every 12 hours, he is not on any steroids. His blood work from yesterday showed white blood cell count of 2.3, which was down trending, his d-dimer was 0.97, sodium is 140, potassium is 4.0, chloride is 107, BUN was 14.9, creatinine is 1.1. Hemoglobin A1c was 9.8, his LDH was down to 199, his CRP was also improving and was down to 3.7. Patient has been afebrile. He is tolerating oral intake, no nausea vomiting or diarrhea, no abdominal discomfort. Objective - Vital Signs Vital signs: Vital Signs Temp 98.3 F 09/27/21 14:35 Pulse 96 09/27/21 14:35 Resp 17 09/27/21 14:35 BP 148/85 09/27/21 14:35 Pulse Ox 96 09/27/21 14:35 Intake & Output 09/26/21 09/27/21 09/27/21 18:59 06:59 18:59 Intake Total 350 400 Balance 350 400 Intake: Oral 350 400 Other: Voiding Method Toilet Toilet Toilet Urinal Urinal Urinal # Voids 2 - Exam GENERAL EXAM: Alert, very pleasant, 51-year-old white male, on room air with a pulse ox of 96% comfortable in no apparent distress. HEAD: Normocephalic/atraumatic. EYES: Normal reaction of pupils, equal size. Conjunctiva pink, sclera white. NOSE: Clear with pink turbinates. THROAT: No erythema or exudates. NECK: No masses, no JVD, no thyroid enlargement, no adenopathy. CHEST: No chest wall deformity. Symmetrical expansion. LUNGS: Equal air entry with basilar crackles CVS: Regular rate and rhythm, normal S1 and S2, no gallops, no murmurs, no rubs ABDOMEN: Soft, nontender. No hepatosplenomegaly, normal bowel sounds, no guarding or rigidity. EXTREMITIES: No clubbing, no edema, no cyanosis, 2+ pulses and upper and lower extremities. MUSCULOSKELETAL: Muscle strength and tone normal. SPINE: No scoliosis or deformity SKIN: No rashes CENTRAL NERVOUS SYSTEM: Alert and oriented -3. No focal deficits, tone is nor mal in all 4 extremities. PSYCHIATRIC: Alert and oriented -3. Appropriate affect. Intact judgment and insight. - Labs CBC & Chem 7: 09/26/21 05:59 09/26/21 05:59 Labs: Abnormal Lab Results - Last 24 Hours (Table) 09/25/21 09/26/21 09/26/21 Range/Units 05:16 16:18 20:29 POC Glucose (mg/dL) 210 H 210 H (75-99) mg/dL Ferritin 881.0 H (22.0-322.0) ng/mL 09/27/21 09/27/21 Range/Units 06:45 11:35 POC Glucose (mg/dL) 155 H 179 H (75-99) mg/dL Ferritin (22.0-322.0) ng/mL Assessment and Plan Plan: Assessment: #1. Acute diabetic ketoacidosis, resolved #2. COVID-19 pneumonia, chest x-ray showing bilateral multifocal opacities, however patient is on room air, and as such does not qualify for IV steroids or Remdesivir. Patient incidentally found to be positive for COVID-19 and received monoclonal antibodies on 09/22/2021, as part of the workup in the emergency department for complaints of back pain and flank pain and computed tomography scan of the abdomen and pelvis showed lung bases with minimal reticular interstitial density. Patient is on room air, pulse ox is 96% #3. Diabetes mellitus type 2 #4. Hypothyroidism #5. Chronic back pain #6. Acute anion Metabolic acidosis, recovered Plan: Patient is stable from pulmonary perspective Has a minimal cough, no worsening dyspnea, remains on room air His chest x-ray does show multifocal bilateral opacities without significant change Continue multivitamins Follow-up labs tomorrow, including d-dimer, inflammatory markers, and basic labs including CBC and CMP If remains stable, may consider discharge home once cleared by medicine I performed a history & physical examination of the patient and discussed their management with my nurse practitioner, Elidia Grady. I reviewed the nurse practitioner's note and agree with the documented findings and plan of care. Lung sounds are positive for dim and rales throughout the lung hoffmann. The findings and the impression was discussed with the patient. I attest to the documentation by the nurse practitioner. Time with Patient: Less than 30
[2021-09-27 17:06] LABS: Glucose,Whole Blood 207 mg/dL (75-99)
[2021-09-27] MEDS ORDERED: BUTALB/APAP/CAFF 50-325-40MG TAB PO PRN (17:50)
--- NOTE | 2021-09-27 20:24 | P.PN ---
Subjective This is a pleasant 51 years old male with past medical history of diabetes mellitus on insulin 40 units of Lantus at home, presents with signs symptoms of DKA which is improved now, he is a started on Levemir 20 units and his glucose more than 250, therefore going to increase the dose to 25 units. Also patient is complaining of from nausea and Zofran dose was increased. No abdominal pain or chest pain. No significant dyspnea, no diarrhea. He is on room air. Inflammatory markers are trending down, he has mild leukopenia with WBC 2.6. Hemoglobin 12.5 and platelet 124. His hemoglobin A1c is 9.8, Chest x-ray today showing bilateral pneumonia, consistent with covert, no change from prior. He is currently on multiple vitamins, Protonix IV and insulin therapy 09/27/2020 Patient today he was lying in bed complaining of from headache about 67/10 in severity on the top of his head, nonradiating felt like pressure for the last 2 days but feels that this little improvement. With some nausea but no vomiting. His appetite is picking up and eating between 0-50% and 100% at times. No dyspnea, no chest pain or coughing. No abdominal pain. No diarrhea. No weakness or numbness in walking/gait is fine. His hemodynamically stable. Gluc ose is around 200 and his Levemir increased 25 units up to 8.8 units daily tomorrow. His hemoglobin A1c is elevated at 9.8. Repeat chest x-ray looks stable. Repeat labs in the morning. Possible discharge in 24-48 hours if he keeps improving Objective - Vital Signs Vital signs: Vital Signs Temp 98.2 F 09/27/21 08:21 Pulse 88 09/27/21 08:21 Resp 18 09/27/21 08:21 BP 145/70 09/27/21 08:21 Pulse Ox 96 09/27/21 08:21 Intake & Output 09/26/21 09/27/21 09/27/21 18:59 06:59 18:59 Intake Total 350 Balance 350 Intake: Oral 350 Other: Voiding Method Toilet Toilet Toilet Urinal Urinal Urinal # Voids 2 - Exam GENERAL: The patient is alert and oriented x3, not in any acute distress. Well developed, well nourished. HEENT: Pupils are round and equally reacting to light. EOMI. No scleral icterus. No conjunctival pallor. Normocephalic, atraumatic. No pharyngeal erythema. No thyromegaly. CARDIOVASCULAR: S1 and S2 present. No murmurs, rubs, or gallops. PULMONARY: Chest is clear to auscultation, no wheezing or crackles. ABDOMEN: Soft, nontender, nondistended, normoactive bowel sounds. No palpable organomegaly. MUSCULOSKELETAL: No joint swelling or deformity. EXTREMITIES: No cyanosis, clubbing, or pedal edema. NEUROLOGICAL: Gross neurological examination did not reveal any focal deficits. SKIN: No rashes. no petechiae. - Labs CBC & Chem 7: 09/26/21 05:59 09/26/21 05:59 Labs: Abnormal Lab Results - Last 24 Hours (Table) 09/25/21 09/26/21 09/26/21 Range/Units 05:16 05:59 11:59 POC Glucose (mg/dL) 280 H (75-99) mg/dL Hemoglobin A1c 9.8 H (4.0-6.0) % Ferritin 881.0 H (22.0-322.0) ng/mL 09/26/21 09/26/21 09/27/21 Range/Units 16:18 20:29 06:45 POC Glucose (mg/dL) 210 H 210 H 155 H (75-99) mg/dL Hemoglobin A1c (4.0-6.0) % Ferritin (22.0-322.0) ng/mL Assessment and Plan Assessment: Bilateral Covid pneumonia Acute hypoxic respiratory failure Increased inflammatory markers Diabetes mellitus with hyperglycemia, present on admission DKA, improved Plan: This is a pleasant 51 years old male who presents with uncontrolled diabetes and DKA which is resolved and covid pneumonia no dexamethasone in view of lack of significant hypoxia and risk of DKA Continue with vitamin C, vitamin D and zinc Pulmonary consult , infectious disease consult Labs and medication were reviewed.. Continue same treatment. Continue with symptomatic treatment. Resume home medication. Monitor lytes and vitals. DVT and GI prophylaxis. Further recommendationsas per clinical course of the patient DVT prophylaxis: Subcutaneous heparin GI Prophylaxis: Ppi
[2021-09-27 20:38] LABS: Glucose,Whole Blood 172 mg/dL (75-99)
[2021-09-27] MEDS: MEMANTINE 5 MG TAB PO SCH (21:42)
--- NOTE | 2021-09-28 05:27 | PN ---
PROGRESS NOTE DATE OF SERVICE: 09/27/2021. REASON FOR FOLLOWUP: COVID-19 infection. INTERVAL HISTORY: Patient is afebrile. The patient is currently breathing comfortably on room air. Patient's headache has improved. No chest pain. No worsening shortness of breath or cough. No abdominal pain. No diarrhea. PHYSICAL EXAMINATION: Blood pressure 150/77, pulse 80, temperature 98.6. He is 94% on room air. General description is a middle-aged male lying in bed in no distress. Respiratory system: Unlabored breathing, decreased intensity in breath sounds, no wheeze. Heart S1, S2. Regular rate and rhythm. Abdomen soft, no tenderness. LABS: No new labs have been obtained today. DIAGNOSTIC IMPRESSION AND PLAN: Patient with acute COVID-19 infection with mild admitted to the hospital in this patient seems to be showing overall clinical improvement. Currently on heparin, zinc and ascorbic acid to continue. No need for systemic antibiotic therapy and monitor clinical course closely. MMODL / IJN: [id number] /
[2021-09-28] MEDS: LEVOTHYROXINE 50 MCG TAB PO SCH (05:39)
[2021-09-28 06:59] LABS: Glucose,Whole Blood 269 mg/dL (75-99)
[2021-09-28] MEDS: ZINC SULFATE 220 MG CAP PO SCH (08:02)
[2021-09-28] MEDS: PANTOPRAZOLE 40 MG/10 ML VIAL IVP SCH ×2 (08:02→21:01)
[2021-09-28] MEDS: INSULIN ASPART (NovoLOG) 100 UNIT/ML VIAL SQ SCH ×4 (08:02→21:01)
[2021-09-28] MEDS: ASCORBIC ACID 500 MG TAB PO SCH (08:02)
[2021-09-28] MEDS: HEPARIN SODIUM,PORCINE/PF 5,000 UNIT/0.5 ML SYRINGE SQ SCH ×2 (08:03→21:01)
[2021-09-28] MEDS ORDERED: INSULIN DETEMIR (LEVEMIR) 100 UNIT/ML SYR SQ SCH (09:00)
[2021-09-28] MEDS: ONDANSETRON 4 MG/2 ML VIAL IVP PRN ×2 (09:04→21:02)
[2021-09-28 10:34] LABS: HCT 36.9 % (39.6-50.0); HGB 12.9 g/dL (13.0-17.0); MCH 29.8 pg (27.0-32.0); MCV 85.2 fL (80.0-97.0); Mean Platelet Volume 9.8 fL (9.5-12.2); Platelet Count 145 X 10*3/uL (140-440); RBC 4.33 X 10*6/uL (4.40-5.60); RDW 12.2 % (11.5-14.5); WBC 4.09 X 10*3/uL (4.50-10.00)
[2021-09-28 11:37] LABS: Basophils # (A) 0 X 10*3/uL (0.00-0.10); Basophils % (A) 0 %; Eosinophils # (A) 0.04 X 10*3/uL (0.04-0.35); Lymphocytes # (A) 0.69 X 10*3/uL (0.90-5.00); Lymphocytes % (A) 16.9 %; Monocytes # (A) 0.46 X 10*3/uL (0.20-1.00); Monocytes % (A) 11.2 %; Neutrophils # (A) 2.88 X 10*3/uL (1.80-7.70); Neutrophils % (A) 70.4 %
[2021-09-28 11:39] LABS: African American GFR (CKD) 106.9 (60.0-200.0); Albumin 3.2 g/dL (3.8-4.9); Albumin/Globulin Ratio 1.62 (1.60-3.17); Anion Gap 10.2 mmol/L (10.00-18.00); BUN/Creat Ratio 15.56 Ratio (12.00-20.00); Blood Urea Nitrogen 14.8 mg/dL (9.0-27.0); C Reactive Protein 4.2 mg/dL (0.00-0.80); Calcium 8.3 mg/dL (8.7-10.3); Carbon Dioxide 27.4 mmol/L (20.0-27.5); Non-African American GFR(CKD) 92.2 (60.0-200.0); Potassium 3.7 mmol/L (3.5-5.5); Total Bilirubin 0.6 mg/dL (0.30-1.20); Total Protein 5.2 g/dL (6.2-8.2)
[2021-09-28 11:43] LABS: Glucose,Whole Blood 287 mg/dL (75-99)
[2021-09-28 16:51] LABS: Glucose,Whole Blood 160 mg/dL (75-99)
--- NOTE | 2021-09-28 17:39 | PN ---
PROGRESS NOTE DATE OF SERVICE: 09/28/2021 REASON FOR FOLLOWUP: Covid 19 infection. INTERVAL HISTORY: Patient is afebrile, has been complaining of nausea and did having vomiting this morning. No abdominal pain or diarrhea. No chest pain, shortness of breath. Minimal cough. Currently on room air. PHYSICAL EXAMINATION: Blood count 127/74 with a pulse of 101, temperature 98. He is 95% on room air. General description is a middle-aged male lying in bed in no distress. Respiratory system: Unlabored breathing, decreased intensity in breath sounds, with no wheeze. Heart S1, S2. Regular rate. Abdomen: Soft. No tenderness. LABS: Hemoglobin is 12.7, white count 4.09 and D. dimer 0.90, 0.19. DIAGNOSTIC IMPRESSION AND PLAN: Patient admitted to the hospital with acute nausea and vomiting with diabetic ketoacidosis, did have a positive Covid test, however, did not have any significant respiratory symptoms and not hypoxic, currently being treated with supportive treatment of heparin, zinc and ascorbic acid. Steroid has been avoided because of DKA. Continue to monitor the patient closely. Continue supportive care. MMODL / IJN: [id number] /
--- NOTE | 2021-09-28 17:51 | P.PN ---
Subjective Progress Note Date: 09/28/21 Principal diagnosis: Diabetic ketoacidosis, cough, shortness of breath On 09/27/2021 patient seen in follow-up on medical surgical floor, he is awake and alert, oriented 3, breathing comfortably, still has a mild cough, he is currently on room air, pulse ox is 96%, vital signs have been stable, his been afebrile. His lung sounds reveal some mild bibasilar crackles, patient has been ambulating in the room, tolerating activity well, denies any chest pain, denies any worsening dyspnea, his only complaint is mild headaches. His last chest x- ray from yesterday showed bilateral multifocal opacities consistent with COVID- 19 infection without significant change from one day prior. He currently remains on multivitamins, he is on subcu heparin 5000 units every 12 hours, he is not on any steroids. His blood work from yesterday showed white blood cell count of 2.3, which was down trending, his d-dimer was 0.97, sodium is 140, potassium is 4.0, chloride is 107, BUN was 14.9, creatinine is 1.1. Hemoglobin A1c was 9.8, his LDH was down to 199, his CRP was also improving and was down to 3.7. Patient has been afebrile. He is tolerating oral intake, no nausea vomiting or diarrhea, no abdominal discomfort. On 09/28/2021 patient seen in follow-up on medical surgical floor. Patient is awake and alert, in no acute distress, she is sitting up in the chair, breathing comfortable, he remains on room air, denies any breathing issues, no dyspnea, no cough. Yesterday he was complaining of a headache, he was given some IV narcotics, he developed nausea, required some Zofran today. Otherwise breathing has remained stable, vitals have been stable. No fever or chills, room air pulse ox is 95-96%. His last chest x-ray on the 09/26/2021 showed bilateral multifocal opacities consistent a 19 infection without significant change. His labs have been noted, his white count is 4.09, hemoglobin is 12.9, d-dimer 0.90, electrolytes and renal profile are within normal limits, his LDH is within normal limits at 223, and his CRP is 4.20, improved since admission, poor calc ium level is improved and is down to 0.19. Today's blood sugar is 219, his anion gap is at 10.2. Patient is tolerating oral intake. Objective - Vital Signs Vital signs: Vital Signs Temp 98.0 F 09/28/21 15:40 Pulse 101 H 09/28/21 15:40 Resp 18 09/28/21 15:40 BP 127/74 09/28/21 15:40 Pulse Ox 95 09/28/21 15:40 Intake & Output 09/27/21 09/28/21 09/28/21 18:59 06:59 18:59 Intake Total 400 Balance 400 Weight 102.6 kg Intake: Oral 400 Other: Voiding Method Toilet Toilet Toilet Urinal Urinal Urinal # Voids 1 - Exam GENERAL EXAM: Alert, very pleasant, 51-year-old white male, on room air with a pulse ox of 95% comfortable in no apparent distress. HEAD: Normocephalic/atraumatic. EYES: Normal reaction of pupils, equal size. Conjunctiva pink, sclera white. NOSE: Clear with pink turbinates. THROAT: No erythema or exudates. NECK: No masses, no JVD, no thyroid enlargement, no adenopathy. CHEST: No chest wall deformity. Symmetrical expansion. LUNGS: Equal air entry with basilar crackles CVS: Regular rate and rhythm, normal S1 and S2, no gallops, no murmurs, no rubs ABDOMEN: Soft, nontender. No hepatosplenomegaly, normal bowel sounds, no guarding or rigidity. EXTREMITIES: No clubbing, no edema, no cyanosis, 2+ pulses and upper and lower extremities. MUSCULOSKELETAL: Muscle strength and tone normal. SPINE: No scoliosis or deformity SKIN: No rashes CENTRAL NERVOUS SYSTEM: Alert and oriented -3. No focal deficits, tone is normal in all 4 extremities. PSYCHIATRIC: Alert and oriented -3. Appropriate affect. Intact judgment and insight. - Labs CBC & Chem 7: 09/28/21 05:59 09/28/21 05:59 Labs: Abnormal Lab Results - Last 24 Hours (Table) 09/27/21 09/28/21 09/28/21 Range/Units 20:33 05:59 05:59 WBC 4.09 L (4.50-10.00) X 10*3/uL RBC 4.33 L (4.40-5.60) X 10*6/uL Hgb 12.9 L (13.0-17.0) g/dL Hct 36.9 L (39.6-50.0) % Lymphocytes # 0.69 L (0.90-5.00) X 10*3/uL D-Dimer (<0.60) mg/L FEU Glucose (70-110) mg/dL POC Glucose (mg/dL) 172 H (75-99) mg/dL Calcium (8.7-10.3) mg/dL C-Reactive Protein (0.00-0.80) mg/dL Total Protein (6.2-8.2) g/dL Albumin (3.8-4.9) g/dL Procalcitonin 0.19 H (0.02-0.09) ng/mL 09/28/21 09/28/21 09/28/21 Range/Units 05:59 05:59 06:58 WBC (4.50-10.00) X 10*3/uL RBC (4.40-5.60) X 10*6/uL Hgb (13.0-17.0) g/dL Hct (39.6-50.0) % Lymphocytes # (0.90-5.00) X 10*3/uL D-Dimer 0.90 H (<0.60) mg/L FEU Glucose 219 H (70-110) mg/dL POC Glucose (mg/dL) 269 H (75-99) mg/dL Calcium 8.3 L (8.7-10.3) mg/dL C-Reactive Protein 4.20 H (0.00-0.80) mg/dL Total Protein 5.2 L (6.2-8.2) g/dL Albumin 3.2 L (3.8-4.9) g/dL Procalcitonin (0.02-0.09) ng/mL 09/28/21 09/28/21 Range/Units 11:38 16:46 WBC (4.50-10.00) X 10*3/uL RBC (4.40-5.60) X 10*6/uL Hgb (13.0-17.0) g/dL Hct (39.6-50.0) % Lymphocytes # (0.90-5.00) X 10*3/uL D-Dimer (<0.60) mg/L FEU Glucose (70-110) mg/dL POC Glucose (mg/dL) 287 H 160 H (75-99) mg/dL Calcium (8.7-10.3) mg/dL C-Reactive Protein (0.00-0.80) mg/dL Total Protein (6.2-8.2) g/dL Albumin (3.8-4.9) g/dL Procalcitonin (0.02-0.09) ng/mL Assessment and Plan Plan: Assessment: #1. Acute diabetic ketoacidosis, resolved #2. COVID-19 pneumonia, chest x-ray showing bilateral multifocal opacities, however patient is on room air, and as such does not qualify for IV steroids or Remdesivir. Patient incidentally found to be positive for COVID-19 and received monoclonal antibodies on 09/22/2021, as part of the workup in the emergency department for complaints of back pain and flank pain and computed tomography scan of the abdomen and pelvis showed lung bases with minimal reticular interstitial density. Patient is on room air, pulse ox is 96% #3. Diabetes mellitus type 2 #4. Hypothyroidism #5. Chronic back pain #6. Acute anion Metabolic acidosis, recovered Plan: Patient is stable from pulmonary perspective No acute events overnight Maintaining stable O2 saturations on room air Today's labs have been noted Vital signs have been stable, no fever or chills Patient may be considered for discharge home when cleared by medicine Pulmonary service will sign off and follow on as-needed basis I performed a history & physical examination of the patient and discussed their management with my nurse practitioner, Elidia Grady. I reviewed the nurse practitioner's note and agree with the documented findings and plan of care. Lung sounds are positive for dim and rales throughout the lung hoffmann. The findings and the impression was discussed with the patient. I attest to the documentation by the nurse practitioner. Time with Patient: Less than 30
[2021-09-28 20:35] LABS: Glucose,Whole Blood 144 mg/dL (75-99)
--- NOTE | 2021-09-28 20:36 | P.PN ---
Subjective This is a pleasant 51 years old male with past medical history of diabetes mellitus on insulin 40 units of Lantus at home, presents with signs symptoms of DKA which is improved now, he is a started on Levemir 20 units and his glucose more than 250, therefore going to increase the dose to 25 units. Also patient is complaining of from nausea and Zofran dose was increased. No abdominal pain or chest pain. No significant dyspnea, no diarrhea. He is on room air. Inflammatory markers are trending down, he has mild leukopenia with WBC 2.6. Hemoglobin 12.5 and platelet 124. His hemoglobin A1c is 9.8, Chest x-ray today showing bilateral pneumonia, consistent with covert, no change from prior. He is currently on multiple vitamins, Protonix IV and insulin therapy 09/27/2020 Patient today he was lying in bed complaining of from headache about 67/10 in severity on the top of his head, nonradiating felt like pressure for the last 2 days but feels that this little improvement. With some nausea but no vomiting. His appetite is picking up and eating between 0-50% and 100% at times. No dyspnea, no chest pain or coughing. No abdominal pain. No diarrhea. No weakness or numbness in walking/gait is fine. His hemodynamically stable. Gluc ose is around 200 and his Levemir increased 25 units up to 8.8 units daily tomorrow. His hemoglobin A1c is elevated at 9.8. Repeat chest x-ray looks stable. Repeat labs in the morning. Possible discharge in 24-48 hours if he keeps improving 09/28/2020 Patient clinically is doing well other than the nausea vomiting. His respiratory symptoms are minimal and he is not hypoxic not dyspneic with no cough or chest pain. His glucose is controlled and currently is on Levemir 28 units compared to 40 units at home, he needed extra 15 units today therefore we are going to increase his Levemir and 35 units tomorrow. His headache is significantly improved and is minimal. No weakness or numbness or dizziness. However this morning he developed 5 bouts of vomiting and he has decreased appetite and therefore we switched him to liquid diet today and we going to monitor him for 1 more days. If his sugar better control tomorrow and he tolerates diet then he may be considered for discharge. Pulmonary service already signed off the case as a stable from their perspective. Infectious disease team of the case and patient was kept on multiple vitamins for his covid infection without pneumonia or hypoxia Objective - Vital Signs Vital signs: Vital Signs Temp 98.2 F 09/28/21 10:59 Pulse 101 H 09/28/21 10:59 Resp 17 09/28/21 10:59 BP 136/86 09/28/21 10:59 Pulse Ox 96 09/28/21 10:59 Intake & Output 09/27/21 09/28/21 09/28/21 18:59 06:59 18:59 Intake Total 400 Balance 400 Weight 102.6 kg Intake: Oral 400 Other: Voiding Method Toilet Toilet Toilet Urinal Urinal Urinal # Voids 1 - Exam GENERAL: The patient is alert and oriented x3, not in any acute distress. Well developed, well nourished. HEENT: Pupils are round and equally reacting to light. EOMI. No scleral icterus. No conjunctival pallor. Normocephalic, atraumatic. No pharyngeal erythema. No thyromegaly. CARDIOVASCULAR: S1 and S2 present. No murmurs, rubs, or gallops. PULMONARY: Chest is clear to auscultation, no wheezing or crackles. ABDOMEN: Soft, nontender, nondistended, normoactive bowel sounds. No palpable organomegaly. MUSCULOSKELETAL: No joint swelling or deformity. EXTREMITIES: No cyanosis, clubbing, or pedal edema. NEUROLOGICAL: Gross neurological examination did not reveal any focal deficits. SKIN: No rashes. no petechiae. - Labs CBC & Chem 7: 09/28/21 05:59 09/28/21 05:59 Labs: Abnormal Lab Results - Last 24 Hours (Table) 09/27/21 09/27/21 09/28/21 Range/Units 17:05 20:33 05:59 WBC (4.50-10.00) X 10*3/uL RBC (4.40-5.60) X 10*6/uL Hgb (13.0-17.0) g/dL Hct (39.6-50.0) % Lymphocytes # (0.90-5.00) X 10*3/uL D-Dimer (<0.60) mg/L FEU Glucose (70-110) mg/dL POC Glucose (mg/dL) 207 H 172 H (75-99) mg/dL Calcium (8.7-10.3) mg/dL C-Reactive Protein (0.00-0.80) mg/dL Total Protein (6.2-8.2) g/dL Albumin (3.8-4.9) g/dL Procalcitonin 0.19 H (0.02-0.09) ng/mL 09/28/21 09/28/21 09/28/21 Range/Units 05:59 05:59 05:59 WBC 4.09 L (4.50-10.00) X 10*3/uL RBC 4.33 L (4.40-5.60) X 10*6/uL Hgb 12.9 L (13.0-17.0) g/dL Hct 36.9 L (39.6-50.0) % Lymphocytes # 0.69 L (0.90-5.00) X 10*3/uL D-Dimer 0.90 H (<0.60) mg/L FEU Glucose 219 H (70-110) mg/dL POC Glucose (mg/dL) (75-99) mg/dL Calcium 8.3 L (8.7-10.3) mg/dL C-Reactive Protein 4.20 H (0.00-0.80) mg/dL Total Protein 5.2 L (6.2-8.2) g/dL Albumin 3.2 L (3.8-4.9) g/dL Procalcitonin (0.02-0.09) ng/mL 09/28/21 09/28/21 Range/Units 06:58 11:38 WBC (4.50-10.00) X 10*3/uL RBC (4.40-5.60) X 10*6/uL Hgb (13.0-17.0) g/dL Hct (39.6-50.0) % Lymphocytes # (0.90-5.00) X 10*3/uL D-Dimer (<0.60) mg/L FEU Glucose (70-110) mg/dL POC Glucose (mg/dL) 269 H 287 H (75-99) mg/dL Calcium (8.7-10.3) mg/dL C-Reactive Protein (0.00-0.80) mg/dL Total Protein (6.2-8.2) g/dL Albumin (3.8-4.9) g/dL Procalcitonin (0.02-0.09) ng/mL Assessment and Plan Assessment: Bilateral Covid pneumonia Acute hypoxic respiratory failure Increased inflammatory markers Diabetes mellitus with hyperglycemia, present on admission DKA, improved Plan: This is a pleasant 51 years old male who presents with uncontrolled diabetes and DKA which is resolved and covid pneumonia no dexamethasone in view of lack of significant hypoxia and risk of DKA Continue with vitamin C, vitamin D and zinc Pulmonary consult , infectious disease consult Labs and medication were reviewed.. Continue same treatment. Continue with symptomatic treatment. Resume home medication. Monitor lytes and vitals. DVT and GI prophylaxis. Further recommendationsas per clinical course of the patient DVT prophylaxis: Subcutaneous heparin GI Prophylaxis: Ppi
[2021-09-28] MEDS: MEMANTINE 5 MG TAB PO SCH (21:01)
[2021-09-29] MEDS: LEVOTHYROXINE 50 MCG TAB PO SCH (05:54)
[2021-09-29 07:19] LABS: Glucose,Whole Blood 223 mg/dL (75-99)
[2021-09-29] MEDS: PANTOPRAZOLE 40 MG/10 ML VIAL IVP SCH (07:25)
[2021-09-29] MEDS: INSULIN ASPART (NovoLOG) 100 UNIT/ML VIAL SQ SCH (07:25)
[2021-09-29] MEDS: HEPARIN SODIUM,PORCINE/PF 5,000 UNIT/0.5 ML SYRINGE SQ SCH (07:27)
[2021-09-29] MEDS: ASCORBIC ACID 500 MG TAB PO SCH (07:27)
[2021-09-29] MEDS: ONDANSETRON 4 MG/2 ML VIAL IVP PRN (07:27)
[2021-09-29] MEDS: ZINC SULFATE 220 MG CAP PO SCH (07:27)
[2021-09-29] MEDS ORDERED: INSULIN DETEMIR (LEVEMIR) 100 UNIT/ML SYR SQ SCH (09:00)
[2021-09-29 10:11] VITALS: BP 128/76; PULSE 94; RESP 18; TEMP 99
--- NOTE | 2021-09-29 22:19 | P.DS ---
Providers Date of admission: 09/24/21 17:25 Attending physician: Sofía Grover Consults: 09/24/21 18:53 Consult Physician Routine Consulting Provider: Gus Fuller Consult Reason/Comments: covid Do you want consulting provider notified?: Yes 09/25/21 00:30 Consult Physician Routine Consulting Provider: Benjamin Quintanilla Reason/Comments: intensive care management Do you want consulting provider notified?: Already Contacted Primary care physician: Arianna Solorzano Hospital Course: Diagnoses: Bilateral Covid pneumonia Acute hypoxic respiratory failure, mild and improved Increased inflammatory markers Diabetes mellitus with hyperglycemia, present on admission DKA, improved Hospital course: This is a pleasant 51 years old male with past medical history of diabetes mellitus on insulin 40 units of Lantus at home, presents with signs symptoms of DKA which is improved now, he was discharge on Levemir/Lantus 35 units because of his somewhat poor appetite and diet control upon discharge. His eating was decent but less than before related to his Covid infection Patient also has been evaluated by spa director, he has mild respiratory symptoms and he has some mild hypoxia which is resolved quickly and he has been on room air. He was treated with multiple vitamins, steroids were avoided because of the risk of DKA. However patient showed interval improvement and patient back to his baseline On the day of discharge he denies chest pain or dyspnea. No abdominal pain. No nausea or vomiting. He tolerates diet. No urinary complaints. No headache or weakness or numbness. And was cleared for discharge by pulmonary and infectious disease teams. Problems and management plan were discussed with the patient and he verbalized understanding and acceptance Patient was found stable and can be discharged home however he needs follow-up as an outpatient. Patient was instructed to follow up with PCP Dr. Solorzano within one week and patient agrees Patient also was instructed to follow up with spa director Dr. Quintanilla in 2 weeks and he agrees. Physical exam Gen: patient is a AAOx3, no distress CVS: S1-S2, RRR, no murmur Lungs: B/L CTA, no wheezing Abdomen: soft, no distention, no tenderness, positive bowel sounds Extremity: no leg edema or induration Time spent more than 35 minutes Plan - Discharge Summary Discharge Rx Participant: No New Discharge Prescriptions: New Omeprazole [PriLOSEC] 40 mg PO DAILY 10 Days #10 cap Ascorbic Acid [Vitamin C] 1,000 mg PO DAILY #60 tab Zinc Sulfate [Orazinc] 220 mg PO DAILY #30 cap Continue Insulin Lispro [humaLOG Kwikpen] See Protocol SQ AC-TID PRN PRN Reason: HIGH BLOOD SUGAR Cyanocobalamin [Vitamin B-12] 500 mcg PO MO Levothyroxine Sodium [Synthroid] 50 mcg PO DAILY Fexofenadine HCl [Mckayla Allergy] 180 mg PO DAILY Ergocalciferol (Vitamin D2) [Drisdol (50,000 Iu)] 1,250 mcg PO MO Memantine [Namenda] 5 mg PO HS traMADol HCl [Ultram] 50 mg PO BID PRN PRN Reason: Pain Ondansetron [Zofran ODT] 4 mg PO Q8HR PRN #20 tab PRN Reason: Nausea Changed Insulin Glargine,Hum.rec.anlog [Toujeo Max Solostar] 35 units SQ DAILY #0 Discontinued Ibuprofen [Motrin] 800 mg PO Q8H PRN PRN Reason: Pain Discharge Medication List Ergocalciferol (Vitamin D2) [Drisdol (50,000 Iu)] 1,250 mcg PO MO 08/06/21 [History] Fexofenadine HCl [Mckayla Allergy] 180 mg PO DAILY 08/06/21 [History] Insulin Lispro [humaLOG Kwikpen] See Protocol SQ AC-TID PRN 08/06/21 [History] Levothyroxine Sodium [Synthroid] 50 mcg PO DAILY 08/06/21 [History] Memantine [Namenda] 5 mg PO HS 09/22/21 [History] traMADol HCl [Ultram] 50 mg PO BID PRN 09/22/21 [History] Ondansetron [Zofran ODT] 4 mg PO Q8HR PRN #20 tab 09/23/21 [Rx] Cyanocobalamin [Vitamin B-12] 500 mcg PO MO 09/24/21 [History] Ascorbic Acid [Vitamin C] 1,000 mg PO DAILY #60 tab 09/29/21 [Rx] Insulin Glargine,Hum.rec.anlog [Toujeo Max Solostar] 35 units SQ DAILY #0 09/29/21 [Rx] Omeprazole [PriLOSEC] 40 mg PO DAILY 10 Days #10 cap 09/29/21 [Rx] Zinc Sulfate [Orazinc] 220 mg PO DAILY #30 cap 09/29/21 [Rx] Follow up Appointment(s)/Referral(s): Arianna Solorzano MD [Primary Care Provider] - 10/08/21 9:45 am Benjamin Quintanilla DO [Doctor of Osteopathic Medicine] - 10/26/21 1:45 pm Patient Instructions/Handouts: Coronavirus Disease 2019 (COVID-19), Diabetic Ketoacidosis (DC) Activity/Diet/Wound Care/Special Instructions: Heart healthy diet, low carbohydrate 1800 kcal per day Activity is restricted till you see your doctor We change her dose of Lantus insulin down to 35 units daily, as your appetite improves you may need higher dose of insulin we recommend to check your glucoses 4 times a day, before each meal and at bedtime, keep the results in a log book and bring it to your doctor on your a ppointment date If your glucose less than 70 or more than 400, then call 911 on come to emergency room Discharge Disposition: HOME SELF-CARE
== END 2021-09-29 12:08 | disposition home or self-care (01) | DRG 637 ==
LOC: EC 13:59 → 3SCARD 17:25 → 2SICU 09-25 00:13 → 4SSUR 09-25 09:36
PROVIDERS: ADMIT Hospitalist; ATTEND Hospitalist
DX: E11.10 Type 2 diabetes mellitus with ketoacidosis without coma (principal); U07.1 COVID-19; J12.82 Pneumonia due to coronavirus disease 2019; J96.01 Acute respiratory failure with hypoxia; N17.0 Acute kidney failure with tubular necrosis; D69.6 Thrombocytopenia, unspecified; D72.810 Lymphocytopenia; E03.9 Hypothyroidism, unspecified; E87.5 Hyperkalemia; G89.29 Other chronic pain; M54.9 Dorsalgia, unspecified; R11.2 Nausea with vomiting, unspecified; Z79.4 Long term (current) use of insulin; Z79.890 Hormone replacement therapy; Z90.49 Acquired absence of other specified parts of digestive tract; Z98.1 Arthrodesis status
CPT/HCPCS: 36415; 36600; 71045; 80048; 80051; 80053; 81001; 82009; 82565; 82728; 82805; 82947; 83036; 83615; 84100; 84145; 84520; 85025; 85379; 85652; 86140; 87635; 93005; 96361; 96374; 96375; 99291